=== PATIENT | male | born 1990 | race Caucasian/White ===

== ENCOUNTER 2018-10-26 11:46 | Emergency (ER) | payer SELFPAY ==
[~2018-10-26] VITALS: Ht 182.9 cm; Wt 70.3 kg
--- NOTE | 2018-10-26 11:46 | NUR ---
Placed in [facility].
--- NOTE | 2018-10-26 11:48 | NUR ---
Dr. Rubin at bedside evaluating patient.
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
[2018-10-26 12:00] VITALS: BP_SYST 137
[2018-10-26] MEDS ORDERED: SULFAMETHOXAZOLE/TRIMETHOPR DS 1 TABLET PO ONE (12:00)
[2018-10-26] MEDS ORDERED: DIPH-TET-PERTUS Vaccine 0.5 ML VIAL (ADACEL) I.M. ONE (12:00)
--- NOTE | 2018-10-26 12:12 | NUR ---
Note undone in EDM - 10/26/18 at 1342 by [email or web address] Patient given written and verbal discharge instructions and verbalizes understanding. ER discussed with patient the results and treatment provided. Patient in stable condition. ID arm band removed. Rx of bacitracin given. Patient educated on pain management and to follow up with PMD. Pain Scale 0/10. Opportunity for questions provided and answered. Medication side effect fact sheet provided.
[2018-10-26 12:13] VITALS: BP_SYST 134
[2018-10-26] MEDS ORDERED: BACITRACIN 1 GM OINT TP ONE (12:15)
--- NOTE | 2018-10-26 12:15 | NUR ---
Wound on left 3rd finger nail irrigated with 100mL NS. Bacitracin and bandaid applied.
--- NOTE | 2018-10-26 12:22 | NUR ---
Patient was discharged into custody of [facility]. Patient given written and verbal discharge instructions and verbalizes understanding. ER MD discussed with patient the results and treatment provided. Patient in stable condition. ID arm band removed. Rx of bacitracin given. Patient educated on pain management and to follow up with PMD. Pain Scale 0/10. Opportunity for questions provided and answered. Medication side effect fact sheet provided.
== END 2018-10-26 11:48 ==
LOC: SED 11:46
DX: S60.572A Other superficial bite of hand of left hand, initial encounter (principal); S50.872A Other superficial bite of left forearm, initial encounter; W50.3XXA Accidental bite by another person, initial encounter; Y93.89 Activity, other specified; Y92.89 Other specified places as the place of occurrence of the external cause; Y99.8 Other external cause status
CPT/HCPCS: 90715; 99283